=== PATIENT | female | born 1975 | race Two or more races ===

== ENCOUNTER 2017-06-15 21:49 | Emergency (ER) | payer SELFPAY ==
[2017-06-15 22:09] VITALS: BP 128/72; PULSE 69; RESP 20; TEMP 98; O2SAT 98
[2017-06-15] MEDS ORDERED: TDAP VACCINE 0.5 ML SUS IM ONE ×2 (23:19→23:24)
== END 2017-06-16 00:01 | disposition home or self-care (01) | DRG 605 ==
LOC: ED 21:49
DX: S90.852A Superficial foreign body, left foot, initial encounter (principal)
CPT/HCPCS: 73620; 90715; 99282